=== PATIENT | female | born 2000 | race Caucasian/White ===

== ENCOUNTER 2018-10-02 14:54 | Inpatient (IN) | payer OTHER ==
[2018-10-02 15:42] VITALS: BMI 35.7
[2018-10-02 16:04] LABS: Bilirubin Negative (Negative); Blood, Urine Negative (Negative); Clarity CLEAR (Clear); Glucose, Urine (Dipstick) Negative (Negative); Leukocyte Small (Negative); Nitrite Negative (Negative); Protein, Urine (Dipstick) Negative (Neg-Trace); Specific Gravity, Urine 1.016 (1.002-1.036); Urobilinogen 0.2 mg/dL (0.2-1.0); pH, Urine 6.5 (5.0-9.0)
[2018-10-02 16:07] LABS: Bacteria/HPF None Seen HPF (None Seen); Hyaline Casts/LPF 0-3 HYALINE CAST LPF (0-3 Hyaline); Pathc Cast-AUWi Flag 0.27 (0-2.49); RBC/HPF 0-3 HPF (0-3); Squamous Epithelial 0-3 HPF (0-3); WBC/HPF 0-3 HPF (0-3)
[2018-10-02 16:10] LABS: #Eosinphils 0.1 thou/uL (0.0-0.7); #Monocytes 0.5 thou/uL (0.11-0.59); %Basophils 0.1 % (0.0-1.0); %Eosinophils 0.5 % (0.0-10.0); %Lymphocytes 14.7 % (28.0-48.0); %Neutrophils 80.7 % (31.0-61.0); Hemoglobin 11.1 g/dL (12.0-16.0); Mean Corpuscular HGB CONC 33.8 g/dL (32.0-36.0); Mean Corpuscular Hemoglobin 29.4 pg (25.0-35.0); Mean Platelet Volume 8.7 fL (7.4-10.4); Platelet Count 243 thou/uL (130-400); RBC Distribution Width 12.8 % (11.5-14.5); Red Blood Cell (RBC) Count 3.76 mill/uL (4.00-5.20); White Blood Cell (WBC) Count 13.6 thou/uL (4.8-10.8)
[2018-10-02] MEDS: Acetaminophen 325 MG TAB PO PRN ×2 (16:16→22:55)
[2018-10-02 16:34] LABS: ALT (SGPT) 8 U/L (8-55); AST (SGOT) 11 U/L (5-34); Albumin 3.3 g/dL (3.5-5.0); Alkaline Phosphatase 168 U/L (40-150); Anion Gap 11 mmol/L (10-20); BUN (Urea Nitrogen) 10 mg/dL (7.0-18.7); Bilirubin, Total 0.2 mg/dL (0.2-1.2); Calc. Creatinine Clearance 207 mL/min (70-130); Calcium 9.2 mg/dL (7.8-10.44); Carbon Dioxide 25 mmol/L (22-29); Chloride 105 mmol/L (98-107); Estimated GFR-MDRD Greater than 90; Globulin 2.8 g/dL (2.4-3.5); Glucose 89 mg/dL (70-105); Potassium 4.2 mmol/L (3.5-5.1); Protein, Total 6.1 g/dL (6.0-8.3); Sodium 137 mmol/L (136-145)
[2018-10-02] MEDS ORDERED: Butorphanol Tartrate 1 MG/ML VIAL ONE (18:20)
[2018-10-02 18:27] LABS: Creatinine, Urine 93.55 mg/dL (47-110)
[2018-10-02] MEDS ORDERED: Ondansetron PF 4 MG/2 ML Vial ONE (18:39)
[2018-10-02] MEDS ORDERED: Butorphanol Tartrate 1 MG/ML VIAL SLOW IVP PRN (23:24)
[2018-10-02] MEDS ORDERED: NIFEdipine 10 MG CAP PO SCH (23:30)
[2018-10-03] MEDS ORDERED: Ketorolac Tromethamine 30 MG/ML VIAL ONE ×2 (06:49→09:54)
[2018-10-03] MEDS ORDERED: Oxytocin 10 UNITS/ML VIAL ONE ×2 (06:49→10:35)
[2018-10-03] MEDS ORDERED: MORPHINE 5 MG/10 ML PF VIAL ONE (06:49)
[2018-10-03] MEDS ORDERED: ePHEDrine/0.9% NaCl/PF SYRINGE 50 mg/10 ml ONE (06:49)
[2018-10-03] MEDS ORDERED: Ondansetron PF 4 MG/2 ML Vial ONE (06:49)
[2018-10-03] MEDS ORDERED: NIFEdipine 10 MG CAP PO SCH (09:00)
[2018-10-03] MEDS ORDERED: Bicitra 30 ML UDCUP ONE (09:23)
[2018-10-03] MEDS ORDERED: diphenhydrAMINE 50 MG/ML VIAL ONE (09:54)
[2018-10-03] MEDS ORDERED: Dexamethasone 4 mg/ml Vial ONE (09:54)
[2018-10-03] MEDS ORDERED: Promethazine HCl 25 MG/ML VIAL IM PRN (11:02)
[2018-10-03] MEDS ORDERED: Naloxone HCl 0.4 mg/ml Vial IVP PRN ×2 (11:02)
[2018-10-03] MEDS ORDERED: HYDROmorphone 2 MG/ML VIAL SLOW IVP PRN (11:02)
[2018-10-03] MEDS ORDERED: Naloxone HCl 0.4 mg/ml Vial IV PRN (11:02)
[2018-10-03] MEDS ORDERED: Ondansetron PF 4 MG/2 ML Vial IVP PRN ×2 (11:02→11:15)
[2018-10-03] MEDS ORDERED: Promethazine HCl 25 MG SUPP PR PRN (11:02)
[2018-10-03] MEDS ORDERED: diphenhydrAMINE 50 MG/ML VIAL IVP PRN (11:02)
[2018-10-03] MEDS ORDERED: Ondansetron HCl/PF 4 MG/2 ML Vial IVP PRN (11:02)
[2018-10-03] MEDS ORDERED: L&D-Morphine 4 MG/ML VIAL SLOW IVP PRN (11:02)
[2018-10-03] MEDS ORDERED: Meperidine HCl/PF 25 MG/ML VIAL SLOW IVP PRN (11:02)
[2018-10-03] MEDS ORDERED: Communication Order-Pharmacy FS SCH (11:15)
[2018-10-03] MEDS ORDERED: Bisacodyl 10 MG SUPP PR PRN (11:15)
[2018-10-03] MEDS ORDERED: Lanolin Ointment 7 GM TUBE TOP PRN (11:15)
[2018-10-03] MEDS ORDERED: Misoprostol 200 MCG TAB PR PRN (11:15)
[2018-10-03] MEDS ORDERED: diphenhydrAMINE 25 MG CAP PO PRN (11:15)
[2018-10-03] MEDS ORDERED: HYDROcodone/Acetaminophen 5/325 mg Tablet PO PRN ×3 (11:15→23:15)
[2018-10-03] MEDS ORDERED: NS / Oxytocin 40 units/1000ml 1,000 ML IV SCH (11:15)
[2018-10-03] MEDS ORDERED: Simethicone Chewable 80 MG TAB PO PRN (11:15)
[2018-10-03] MEDS ORDERED: PHENYLEPHRINE-NS 100 MCG/ML 10 ML SYRINGE ONE (11:29)
[2018-10-03] MEDS: Ibuprofen 800 MG TAB PO SCH ×2 (14:53→22:46)
[2018-10-03] MEDS: Acetaminophen 325 MG TAB PO PRN ×3 (15:32→21:06)
[2018-10-03] MEDS: Lactated Ringer's 1,000 ML IV SCH (17:29)
[2018-10-03] MEDS: Ketorolac Tromethamine 30 MG/ML VIAL IVP PRN (17:34)
[2018-10-03] MEDS: Labetalol 100 MG TAB PO SCH (21:01)
[2018-10-03] MEDS: Docusate Calcium (SURFAK) 240 MG CAP PO SCH (21:02)
[2018-10-03] MEDS: Ferrous Sulfate 325 MG TAB PO SCH (22:46)
[2018-10-03] MEDS ORDERED: Zolpidem Tartrate 5 MG TAB PO PRN (23:15)
[2018-10-03] MEDS ORDERED: Meperidine HCl/PF 25 MG/ML VIAL IM PRN (23:15)
[2018-10-04] MEDS: Lactated Ringer's 1,000 ML IV SCH (00:27)
[2018-10-04] MEDS: Ketorolac Tromethamine 30 MG/ML VIAL IVP PRN (04:43)
--- NOTE | 2018-10-04 04:57 | DN ---
DATE OF PROCEDURE: 10/03/2018 SURGEONS: Uriel Martin MD and Elayne Miranda MD, PGY-3 PROCEDURE PERFORMED: Primary low-transverse section. PREOPERATIVE DIAGNOSES: 1. intrauterine . 2. Preeclampsia with severe features. POSTOPERATIVE DIAGNOSIS: intrauterine . ANESTHESIA: Spinal. INDICATIONS FOR PROCEDURE: The patient is a 18-year-old, G1, P0, now P0-1-0-1 at 36 weeks' gestation, who presented with increasing blood pressures, proteinuria, headache, and visual changes and was dispositioned for primary section for preeclampsia with severe features. DESCRIPTION OF PROCEDURE: After risks, benefits, and alternatives were explained to the patient, she gave informed consent. Preoperative antibiotics included cefazolin 2 g IV. The patient was taken to the operating room and spinal anesthesia was initiated. She was placed in the supine position with left tilt and prepped and draped in the usual sterile fashion. Anesthesia was confirmed to be adequate. A Pfannenstiel incision was made with a scalpel and carried down to the level of the fascia, which was sharply incised. The fascial cut was extended bilaterally with Fernandes scissors. The inferior and superior edges of the cut fascial edges were elevated with Ochsner clamps and underlying rectus muscles were sharply and bluntly dissected free. The midline of the rectus muscles was identified and the muscles were divided digitally and retracted laterally. The peritoneum was entered bluntly with the usual safeguard and retracted manually. A bladder blade was placed. A bladder flap was created on the vesicouterine peritoneum with Metzenbaum scissors. A low transverse score was made with a scalpel and the uterus was entered in the midline bluntly. Clear fluid was seen. The hysterotomy was extended manually. The infant was noted to be vertex and was easily delivered by fundal pressure. Mouth and nares were bulb suctioned. Cord clamped and cut and grossly normal male was handed to awaiting nurse. Cord blood was obtained. Placenta was manually extracted, found to be intact with 3 vessel cord and discarded. The uterus was externalized and the endometrium was curetted with a dry lap. The bladder blade was replaced and the uterus was closed with a running locking 1-0 chromic suture followed by a running locking 2-0 Monocryl imbricating suture. Following this, hemostasis was noted after 2 additional interrupted ligatures were placed along the left corner. The abdomen was suctioned free of clots. The uterus, fallopian tubes and ovaries were inspected and found to be normal. Seprafilm was applied to the low transverse incision and anterior aspect of the uterus for adhesion prevention. The uterus was internalized and hysterotomy was again noted to be hemostatic. The peritoneum was closed with a running 2-0 Vicryl suture. The rectus was approximated with 5 interrupted 2-0 Vicryl sutures. The fascia was closed with a running nonlocking 0 Vicryl suture x2 which were tied in the midline. Good facial integrity was noted. The subcutaneous tissue was irrigated and good hemostasis was achieved with Bovie cauterization. The subcutaneous tissue was approximated with interrupted 2-0 plain ligatures. The subcuticular tissue was approximated with a running 4-0 Monocryl subcuticular stitch and Dermabond was placed. All counts were correct. The patient tolerated the procedure well and was taken to the recovery room in stable condition. QUANTITATIVE BLOOD LOSS: 455 mL. COMPLICATIONS: Extension on the left hysterotomy, which was successfully repaired with interrupted ligatures. SPECIMENS: Cord blood sent to lab for blood type. FINDINGS: Grossly normal male with Apgars of 8 and 9 at one and five minutes respectively. Grossly normal placenta with 3 vessel cord, discarded. DRAINS: Armstrong to gravity, draining clear urine. Job ID: [id number] [facility]
[2018-10-04 06:15] LABS: #Basophils 0.1 thou/uL (0.0-0.2); #Lymphocytes 2.1 thou/uL (1.20-3.40); #Monocytes 0.8 thou/uL (0.11-0.59); #Neutrophils 9.2 thou/uL (1.40-6.50); %Basophils 0.4 % (0.0-1.0); %Eosinophils 0.2 % (0.0-10.0); %Lymphocytes 17.4 % (28.0-48.0); %Monocytes 6.1 % (0.0-4.0); %Neutrophils 75.9 % (31.0-61.0); Hemoglobin 9.2 g/dL (12.0-16.0); Mean Corpuscular HGB CONC 34.7 g/dL (32.0-36.0); Mean Corpuscular Hemoglobin 30.5 pg (25.0-35.0); Mean Corpuscular Volume 87.9 fL (78.0-98.0); Mean Platelet Volume 8.7 fL (7.4-10.4); Platelet Count 146 thou/uL (130-400); RBC Distribution Width 12.7 % (11.5-14.5); Red Blood Cell (RBC) Count 3.02 mill/uL (4.00-5.20); White Blood Cell (WBC) Count 12.1 thou/uL (4.8-10.8)
[2018-10-04] MEDS: Ibuprofen 800 MG TAB PO SCH ×3 (07:51→19:19)
[2018-10-04] MEDS: Labetalol 100 MG TAB PO SCH ×2 (08:12→20:55)
[2018-10-04] MEDS: Prenatal Vitamin 1 TAB PO SCH (08:12)
[2018-10-04] MEDS: Docusate Calcium (SURFAK) 240 MG CAP PO SCH ×2 (08:13→19:30)
[2018-10-04] MEDS: Ferrous Sulfate 325 MG TAB PO SCH ×2 (08:13→20:55)
[2018-10-04] MEDS ORDERED: Adacel (T-DAP) 0.5 ML SYRINGE IM ONE (09:00)
[2018-10-04] MEDS: HYDROcodone/Acetaminophen 5/325 mg Tablet PO PRN ×2 (09:36→16:02)
[2018-10-04] MEDS ORDERED: Sodium Chloride 0.9% 0 ML ONE (10:52)
[2018-10-04 22:04] LABS: HBSAg Index 0.37 S/CO (0-0.99); Hep B Surf Ag Non-Reactive S/CO (NonReactive); Syphilis Antibody Nonreactive (Nonreactive); Syphilis Antibody Index 0.05 S/CO (<1.00 Non-Reactive)
[2018-10-05] MEDS: Ibuprofen 800 MG TAB PO SCH ×3 (02:48→21:44)
[2018-10-05] MEDS: Docusate Calcium (SURFAK) 240 MG CAP PO SCH ×2 (08:45→21:44)
[2018-10-05] MEDS: Prenatal Vitamin 1 TAB PO SCH (08:45)
[2018-10-05] MEDS: Labetalol 100 MG TAB PO SCH ×2 (08:46→21:55)
[2018-10-05] MEDS: HYDROcodone/Acetaminophen 5/325 mg Tablet PO PRN ×2 (08:51→20:09)
[2018-10-05] MEDS: Ferrous Sulfate 325 MG TAB PO SCH ×2 (10:11→21:44)
[2018-10-06] MEDS: Ibuprofen 800 MG TAB PO SCH ×2 (05:12→13:45)
[2018-10-06] MEDS: Docusate Calcium (SURFAK) 240 MG CAP PO SCH (08:57)
[2018-10-06] MEDS: Ferrous Sulfate 325 MG TAB PO SCH (08:57)
[2018-10-06] MEDS: Prenatal Vitamin 1 TAB PO SCH (08:57)
[2018-10-06] MEDS: Labetalol 100 MG TAB PO SCH (08:57)
[2018-10-06 12:00] VITALS: TEMP 98.5
[2018-10-06 12:06] VITALS: BP 125/84
== END 2018-10-06 14:00 | disposition home or self-care (01) | DRG 788 ==
LOC: L&D/OP 14:54 → L&D 10-03 00:32 → 3SW 10-03 14:12
PROVIDERS: ADMIT Obstetrics & Gynecology; ATTEND Obstetrics & Gynecology
PROC: 10D00Z1 Extraction of Products of Conception, Low, Open Approach (ICD-10-PCS; principal; 2018-10-03)
PROC: 3E0P05Z Introduction of Adhesion Barrier into Female Reproductive, Open Approach (ICD-10-PCS; 2018-10-03)
DX: O14.14 Severe pre-eclampsia complicating childbirth (principal); O60.14X0 Preterm labor third trimester with preterm delivery third trimester, not applicable or unspecified; Z3A.36 36 weeks gestation of pregnancy; Z37.0 Single live birth
CPT/HCPCS: 36415; 51702; 80053; 81003; 81015; 82570; 84156; 84560; 85025; 86780; 86850; 86900; 86901; 87340; 99285; J0595; J0690; J1100; J1200; J1885; J2270; J2405; J2590; Q0163

== ENCOUNTER 2019-02-07 10:00 | Emergency (ER) | payer OTHER ==
[2019-02-07] MEDS ORDERED: Ondansetron PF 4 MG/2 ML Vial ONE (10:28)
[2019-02-07] MEDS ORDERED: Ketorolac Tromethamine 30 MG/ML VIAL ONE (10:28)
[2019-02-07 10:46] LABS: #Basophils 0.1 thou/uL (0.0-0.2); #Eosinphils 0.1 thou/uL (0.0-0.7); #Lymphocytes 2.4 thou/uL (1.20-3.40); #Monocytes 0.4 thou/uL (0.11-0.59); #Neutrophils 6.9 thou/uL (1.40-6.50); %Basophils 0.9 % (0.0-1.0); %Eosinophils 0.8 % (0.0-10.0); %Lymphocytes 24.4 % (28.0-48.0); %Monocytes 4.2 % (0.0-4.0); %Neutrophils 69.6 % (31.0-61.0); Hemoglobin 13.3 g/dL (12.0-16.0); Mean Corpuscular HGB CONC 32.1 g/dL (32.0-36.0); Mean Corpuscular Hemoglobin 25.4 pg (25.0-35.0); Mean Platelet Volume 7.4 fL (7.4-10.4); Platelet Count 324 thou/uL (130-400); RBC Distribution Width 13.5 % (11.5-14.5); Red Blood Cell (RBC) Count 5.27 mill/uL (4.00-5.20)
[2019-02-07 10:56] LABS: BHCG - Serum Negative (NEGATIVE); Pregs Control Background? CLEAR/WHITE (CLR/WHITE); Pregs Control Bar Appear? YES (CONTROL BAR)
[2019-02-07 11:00] LABS: ALT (SGPT) 17 U/L (8-55); AST (SGOT) 14 U/L (5-34); Albumin 4.1 g/dL (3.5-5.0); Alkaline Phosphatase 101 U/L (40-100); Anion Gap 14 mmol/L (10-20); BUN (Urea Nitrogen) 8 mg/dL (7.0-18.7); Bilirubin, Total 0.3 mg/dL (0.2-1.2); Calc. Creatinine Clearance 0 mL/min (70-130); Calcium 9.9 mg/dL (7.8-10.44); Carbon Dioxide 27 mmol/L (22-29); Chloride 104 mmol/L (98-107); Estimated GFR-MDRD 88; Glucose 79 mg/dL (70-105); Lipase 11 U/L (8-78); Potassium 4.3 mmol/L (3.5-5.1); Protein, Total 8.1 g/dL (6.0-8.3); Sodium 141 mmol/L (136-145)
--- NOTE | 2019-02-07 11:44 | CT ---
CT Stone Protocol 02/07/2019 10:26 AM HISTORY: Left-sided abdominal pain and vomiting. COMPARISON: None. Technique: Multiple contiguous axial CT images are obtained through the abdomen and pelvis without IV contrast. Coronal reformats are provided. FINDINGS: This examination is limited for the evaluation of solid organs and vascular structures due to the lac k of intravenous contrast. Lower Chest: Minimal atelectasis is present at the left lung base. The lung bases are otherwise clear . Abdomen: Liver: Grossly normal nonenhanced CT appearance. The most superior aspect dome of the liver is exclud ed from view. Gallbladder: Within normal limits for CT imaging. Pancreas: within normal limits. Spleen: Grossly normal nonenhanced CT appearance. Adrenals: Grossly normal nonenhanced CT appearance. Kidneys: No renal calculi are visualized, and there is no evidence of hydronephrosis. Ureters: No ureteral calculus is seen.. Pelvis: Urinary bladder: within normal limits. Reproductive Organs: There is a T-shaped intrauterine contraceptive device noted in place. The distal posterior T-shaped portion of the contraceptive device is in very close proximity to the most posterior margin of the uterus. At 2.6 cm hypodense cystic lesion is seen in the left adnexal region which probably represents an ovarian cyst. Lymph Nodes: No enlarged lymph nodes. Bowel: Normal caliber. Appendix: The appendix is normal in caliber. Peritoneum: No free fluid, free air, or fluid collection. Retroperitoneum: within normal limits. Vessels: Abdominal aorta is normal in caliber.. Abdominal Wall: within normal limits. Bones: within normal limits. IMPRESSION: 1. No renal or ureteral calculi are seen bilaterally. 2. No CT evidence of appendicitis. 3. Intrauterine contraceptive device noted in place. A portion of the T-shaped intrauterine contracep tive device is in very close proximity to the most posterior margin of the uterus. 4. Left adnexal cystic lesion probably to an ovarian cyst.
[2019-02-07 12:10] LABS: Bilirubin Negative (Negative); Blood, Urine Negative (Negative); Clarity Slightly Cloudy (Clear); Glucose, Urine (Dipstick) Negative (Negative); Leukocyte Trace (Negative); Nitrite Negative (Negative); Protein, Urine (Dipstick) Negative (Neg-Trace); Urobilinogen 0.2 mg/dL (Less than 2)
[2019-02-07 12:21] LABS: Bacteria/HPF 3+ HPF (None Seen); RBC/HPF 0-3 HPF (0-3)
== END 2019-02-07 13:05 | disposition home or self-care (01) ==
LOC: SCSER 10:00
DX: R11.2 Nausea with vomiting, unspecified (principal); F41.9 Anxiety disorder, unspecified; F32.9 Major depressive disorder, single episode, unspecified
CPT/HCPCS: 74176; 80053; 81003; 81015; 83690; 84703; 85025; 96361; 96374; 96375; J1885; J2405

== ENCOUNTER 2019-07-23 15:47 | Emergency (ER) | payer OTHER ==
[2019-07-23] MEDS ORDERED: Ondansetron PF 4 MG/2 ML Vial ONE (18:01)
[2019-07-23 18:38] LABS: #Basophils 0.1 thou/uL (0.0-0.2); #Eosinphils 0.1 thou/uL (0.0-0.7); #Lymphocytes 2.9 thou/uL (1.20-3.40); #Monocytes 0.4 thou/uL (0.11-0.59); #Neutrophils 6.8 thou/uL (1.40-6.50); %Basophils 0.6 % (0.0-1.0); %Eosinophils 1.4 % (0.0-10.0); %Lymphocytes 28.1 % (21.0-51.0); Hemoglobin 14.8 g/dL (12.0-16.0); Mean Corpuscular HGB CONC 33.7 g/dL (32.0-36.0); Mean Corpuscular Hemoglobin 27.9 pg (27.0-31.0); Mean Corpuscular Volume 82.9 fL (78.0-98.0); Mean Platelet Volume 7.6 fL (7.4-10.4); Platelet Count 321 thou/uL (130-400); RBC Distribution Width 12.9 % (11.5-14.5); White Blood Cell (WBC) Count 10.3 thou/uL (4.8-10.8)
[2019-07-23 18:55] LABS: ALT (SGPT) 16 U/L (8-55); AST (SGOT) 16 U/L (5-34); Albumin 4.7 g/dL (3.5-5.0); Alkaline Phosphatase 121 U/L (40-110); Anion Gap 12 mmol/L (10-20); BUN (Urea Nitrogen) 9 mg/dL (7.0-18.7); Bilirubin, Total 0.4 mg/dL (0.2-1.2); Calc. Creatinine Clearance 0 mL/min (70-130); Calcium 10.6 mg/dL (7.8-10.44); Carbon Dioxide 29 mmol/L (22-29); Chloride 101 mmol/L (98-107); Estimated GFR-MDRD 72; Globulin 3.9 g/dL (2.4-3.5); Glucose 89 mg/dL (70-105); Magnesium 1.9 mg/dL (1.6-2.6); Protein, Total 8.6 g/dL (6.0-8.3); Sodium 138 mmol/L (136-145)
--- NOTE | 2019-07-23 19:08 | RAD ---
PORTABLE CHEST: 07/23/19 HISTORY: Fall with syncope. Heart size and mediastinum are within normal limits. The lungs are clear of any infiltrates. No sign s of pneumothorax or evidence of rib fractures. IMPRESSION: No active intrathoracic disease. POS: [facility]
[2019-07-23] MEDS ORDERED: Ketorolac Tromethamine 30 MG/ML VIAL ONE (19:43)
== END 2019-07-23 20:05 | disposition home or self-care (01) ==
LOC: ERS 15:47
DX: R55 Syncope and collapse (principal); F41.9 Anxiety disorder, unspecified; F32.9 Major depressive disorder, single episode, unspecified; Z79.899 Other long term (current) drug therapy
CPT/HCPCS: 71045; 80053; 82550; 83735; 84484; 85025; 85379; 93005; 96361; 96374; 96375; J1885; J2405

== ENCOUNTER 2020-04-26 19:38 | Emergency (ER) | payer OTHER | END 2020-04-26 21:45 | disposition home or self-care (01) | LOC: ERS 19:38 | DX: Z46.89 Encounter for fitting and adjustment of other specified devices (principal) | CPT/HCPCS: 99282 ==

== ENCOUNTER 2020-04-30 21:32 | Emergency (ER) | payer OTHER ==
[2020-04-30] MEDS ORDERED: Ketorolac Tromethamine 30 MG/ML VIAL ONE (23:09)
[2020-04-30] MEDS ORDERED: Clindamycin 150 MG CAP ONE (23:35)
== END 2020-04-30 23:37 | disposition home or self-care (01) ==
LOC: ERS 21:32
DX: T81.49XA Infection following a procedure, other surgical site, initial encounter (principal)
CPT/HCPCS: 96372; 99282; J1885

== ENCOUNTER 2022-01-16 19:02 | Emergency (ER) | payer BC, OTHER, SELFPAY ==
[~2022-01-16 19:02] MED LIST: Iopamidol-370 76% 500 ML 1 ML ONE
[2022-01-16 19:45] LABS: #Basophils 0.1 thou/uL (0.0-0.2); #Eosinphils 0.1 thou/uL (0.0-0.7); #Lymphocytes 2.8 thou/uL (1.20-3.40); #Monocytes 0.5 thou/uL (0.11-0.59); #Neutrophils 5.5 thou/uL (1.40-6.50); %Basophils 0.6 % (0.0-1.0); %Eosinophils 1.7 % (0.0-10.0); %Lymphocytes 31.7 % (21.0-51.0); %Monocytes 5.2 % (0.0-10.0); %Neutrophils 60.9 % (42.0-75.0); Hemoglobin 14.7 g/dL (12.0-16.0); Mean Corpuscular HGB CONC 34.3 g/dL (32.0-36.0); Mean Corpuscular Hemoglobin 31.1 pg (27.0-31.0); Mean Corpuscular Volume 90.9 fL (78.0-98.0); Mean Platelet Volume 7.8 fL (7.4-10.4); Platelet Count 273 thou/uL (130-400); RBC Distribution Width 11.9 % (11.5-14.5); Red Blood Cell (RBC) Count 4.73 mill/uL (4.20-5.40)
[2022-01-16 19:57] LABS: BHCG - Serum Negative (NEGATIVE); Pregs Control Background? CLEAR/WHITE (CLR/WHITE); Pregs Control Bar Appear? YES (CONTROL BAR)
[2022-01-16 20:12] LABS: ALT (SGPT) 19 U/L (8-55); AST (SGOT) 21 U/L (5-34); Albumin 4.2 g/dL (3.5-5.0); Alkaline Phosphatase 93 U/L (40-110); Anion Gap 15 mmol/L (10-20); BUN (Urea Nitrogen) 14 mg/dL (7.0-18.7); Bilirubin, Total 0.3 mg/dL (0.2-1.2); Calc. Creatinine Clearance 0 mL/min (70-130); Calcium 9.9 mg/dL (7.8-10.44); Carbon Dioxide 25 mmol/L (22-29); Chloride 104 mmol/L (98-107); Estimated GFR 99; Globulin 4.1 g/dL (2.4-3.5); Glucose 89 mg/dL (70-105); Potassium 4.2 mmol/L (3.5-5.1); Protein, Total 8.3 g/dL (6.0-8.3); Sodium 140 mmol/L (136-145)
[2022-01-16] MEDS ORDERED: Ondansetron PF 4 MG/2 ML Vial ONE (20:12)
[2022-01-16] MEDS ORDERED: Morphine 4 MG/ML VIAL ONE (20:12)
[2022-01-16 21:18] LABS: Bilirubin Negative (Negative); Blood, Urine Negative (Negative); Clarity Clear (Clear); Glucose, Urine (Dipstick) Normal (Negative); Ketone, Urine Negative (Negative); Leukocyte Negative Leu/uL (Negative); Nitrite Negative (Negative); Protein, Urine (Dipstick) Negative (Neg-Trace); Urobilinogen Normal mg/dL (Less than 2)
[2022-01-16 21:19] LABS: Pregnancy Test - Urine (BHCG) Negative (Negative); Pregu Control Background? CLEAR/WHITE (CLR/WHITE); Pregu Control Bar Appear? YES (CONTROL BAR)
[2022-01-16] MEDS ORDERED: Ketorolac Tromethamine 30 MG/ML VIAL ONE (22:22)
== END 2022-01-16 22:36 | disposition home or self-care (01) ==
LOC: ERS 19:02
DX: R10.31 Right lower quadrant pain (principal)
CPT/HCPCS: 36415; 74177; 76856; 80053; 81003; 81025; 83690; 84703; 85025; 93976; 96374; 96375; J1885; J2270; J2405; Q9967